=== PATIENT | male | born 1970 | race Caucasian/White ===

== ENCOUNTER 2019-12-24 00:12 | Day surgery (SDC) | payer OTHER, SELFPAY ==
[2019-12-23 10:28] VITALS: BMI 29.2
[2019-12-24] MEDS: LACTATED RINGERS 1,000 ML 150 ML IV CONT (09:30)
--- NOTE | 2019-12-24 09:32 | WPDANESEPPF ---
Anes - Initial Pre Proc Eval Procedure: Operation Date: 12/24/19 10:30 Proposed Procedures p Screening Colonoscopy - Leonidas Osullivan MD Date/Time: 12/24/19 09:32 Surgeon: Leonidas Osullivan MD Pre Op Diagnosis: Neoplasm Screening Patient Data Age: 49 Gender: M Height: 5 ft 11 in Weight: 95 kg Allergies Allergy/AdvReac Type Severity Reaction Status Date / Time Penicillins Allergy Unknown Rash Verified 12/23/19 10:23 Home Medications Medication Instructions Recorded Confirmed Type [id number] 1 tablet PO DAILY 12/23/19 12/23/19 History [Lukas Multivitamin For Men] Patient hx anesthesia problems: none Family hx anesthesia problems: none PMFSH Past Medical History Medical History (Updated 12/24/19 @ 09:32 by Sylvain Padilla MD) Hemochromatosis Family History Family History (Updated 07/05/18 @ 10:48 by DOCTOR UNKNOWN) Father Hypertension Family history of kidney disease Mother Hypertension Anes - Eval Final PreProcedure Day of Procedure 12/24/19 09:32 Patient weight: overweight Heart: regular rate and rhythm Lungs: clear to auscultation Airway: Mallampati scale class II Neurological: alert and oriented Last oral intake: >/= 8 hours ASA classification: II Emergent: no Anesthetic plan: proceed Anesthesia type and monitoring: general GIVS and standard monitoring Informed Consent: The patient's anesthetic plan and its attendant risks and benefits were discussed with the patient/family/POA. Questions were solicited and answers provided to the satisfaction of the patient/family/POA.
[2019-12-24 09:33] VITALS: BP 133/88; PULSE 85; RESP 20; TEMP 36.9; O2SAT 98; BMI 29.7
--- NOTE | 2019-12-24 10:01 | PM.HPGS ---
History of Present Illness History of Present Illness Consent: Risks, benefits, and alternatives have been discussed and questions answered. Patient agrees to proceed with procedure. Chief complaint: Neoplasm Screening Narrative: Huan Alvarez is a 49 year old male here for screening colonoscopy, never had one. Review of Systems Constitutional: Constitutional: Denies headache(s) and Denies weakness Eyes: Eyes: Denies blurry vision ENT: Reports Normal hearing present, Denies headache(s) and Denies neck pain Cardiovascular: Cardiovascular: Denies chest pain and Denies dyspnea Respiratory: Respiratory: Denies dyspnea Gastrointestinal: Gastrointestinal: Reports no additional gastrointestinal complaints Genitourinary: Genitourinary: Denies dysuria Musculoskeletal: Musculoskeletal: Denies neck pain Integumentary/Breasts: Skin/Breast: Denies dry skin Neurologic: Reports Normal hearing present, Denies headache(s) and Denies weakness Psychiatric: Psychiatric: Denies anxiety Endocrine: Endocrine: Denies change in body appearance Hematologic/Lymphatic: Hematologic/Lymphatic: Denies easy bleeding Allergic/Immunologic: Allergic/Immunologic: Denies urticaria PMFSH Past Medical History Medical History (Updated 12/24/19 @ 10:01 by Leonidas Osullivan MD) Colon cancer screening Hemochromatosis Family History Family History (Updated 07/05/18 @ 10:48 by DOCTOR UNKNOWN) Father Hypertension Family history of kidney disease Mother Hypertension Meds Home Medications and Allergies Home Medications Medication Instructions Recorded Confirmed Type [id number] 1 tablet PO DAILY 12/23/19 12/23/19 History [Lukas Multivitamin For Men] Allergies Allergy/AdvReac Type Severity Reaction Status Date / Time Penicillins Allergy Unknown Rash Verified 12/23/19 10:23 Vital Signs Vital Signs - 24 hr 12/24/19 09:33 Temperature 98.4 F Pulse Rate 85 Respiratory Rate 20 Blood Pressure 133/88 Pulse Oximetry 98 Exam Const: General: comfortable and no acute distress HENMT: General nose exam: Normal nares present Eyes: General: appearance normal, both eyes and all related structures Neck: Neck: no JVD Resp: Auscultation: clear to auscultation bilaterally Cardio: Rate: regular rate Rhythm: regular rhythm GI: Inspection: non-distended GI Palp: Yes Soft to palpation Skin: General skin exam: normal color Neuro: General: gait normal Speech: normal speech Extrem: General: normal to inspection Psych: Mental Status: mental status grossly normal Assessment and Plan Assessment and plan (1) Colon cancer screening: Code(s): Z12.11 - Encounter for screening for malignant neoplasm of colon Status: Acute Assessment and Plan: will proceed with colonoscopy
[2019-12-24 10:29] VITALS: BP 99/56; PULSE 92; RESP 20; O2SAT 100
[2019-12-24 10:39] VITALS: BP 103/66; PULSE 76; RESP 20; O2SAT 99
[2019-12-24 10:49] VITALS: BP 108/75; PULSE 72; RESP 20; O2SAT 100
== END 2019-12-24 10:58 | disposition home or self-care (01) ==
PROVIDERS: PCP Internal Medicine; Visit Provider Internal Medicine Gastroenterology
PROC: 0DJD8ZZ Inspection of Lower Intestinal Tract, Via Natural or Artificial Opening Endoscopic (ICD-10-PCS; CPT 45378; principal; 2019-12-24 10:30)
DX: Z12.11 Encounter for screening for malignant neoplasm of colon (principal); D12.0 Benign neoplasm of cecum; D12.8 Benign neoplasm of rectum; K63.5 Polyp of colon; E83.119 Hemochromatosis, unspecified
CPT/HCPCS: 45385; 45384; 88305; J2704; J7120

== ENCOUNTER → 2020-12-26 05:47 | Outpatient (CLI) | payer OTHER, SELFPAY ==
[2020-12-26 19:10] LABS: SARS-CoV-2 RNA PCR Negative
== END ==
PROVIDERS: PCP Internal Medicine; Visit Provider Internal Medicine Gastroenterology
DX: Z01.812 Encounter for preprocedural laboratory examination (principal); Z20.822 Contact with and (suspected) exposure to COVID-19
CPT/HCPCS: C9803; U0003; U0005

== ENCOUNTER 2020-12-29 00:34 | Day surgery (SDC) | payer OTHER, SELFPAY ==
[2020-12-07 10:12] VITALS: BMI 28.5
[2020-12-29 06:17] VITALS: BP 132/85; PULSE 96; RESP 18; TEMP 36.8; O2SAT 99
[2020-12-29] MEDS: LACTATED RINGERS 1,000 ML 150 ML IV CONT (06:22)
--- NOTE | 2020-12-29 07:07 | WPDANESEPPF ---
Anes - Initial Pre Proc Eval Procedure: Operation Date: 12/29/20 07:30 Proposed Procedures p Screening Colonoscopy - Leonidas Osullivan MD Date/Time: 12/29/20 07:07 Surgeon: Leonidas Osullivan MD Pre Op Diagnosis: Neoplasm Screening Patient Data Age: 50 Gender: M Height: 5 ft 11 in Weight: 97.2 kg Last Vital Signs Temp 36.8 C 12/29/20 06:17 Pulse 96 12/29/20 06:17 Resp 18 12/29/20 06:17 BP 132/85 12/29/20 06:17 Pulse Ox 99 12/29/20 06:17 Allergies Allergy/AdvReac Type Severity Reaction Status Date / Time Penicillins Allergy Intermediate Rash Verified 12/29/20 06:13 Home Medications Medication Instructions Recorded Confirmed Type ascorbate calcium (vitamin C) 500 mg PO DAILY 12/07/20 12/07/20 History cholecalciferol (vitamin D3) 5,000 unit PO DAILY 12/07/20 12/07/20 History [Vitamin D3] mmgwttou-csw-iwvia-vit K-lycop 1 tablet PO DAILY 12/07/20 12/07/20 History [One-A-Day Men's 50 Plus] zinc 50 mg PO DAILY 12/07/20 12/07/20 History Patient hx anesthesia problems: none Family hx anesthesia problems: none PMFSH Past Medical History Medical History Colon cancer screening Hemochromatosis Family History Family History Father Hypertension Family history of kidney disease Mother Hypertension Social History Social History Smoking status: Never smoker Alcohol intake: current Drinks per week: 8 Alcohol use details: BEER Substance use: never Substance use type: does not use Living arrangements: with family Spiritual care concerns: No Anes - Eval Final PreProcedure Day of Procedure 12/29/20 07:07 Patient weight: overweight Heart: regular rate and rhythm Lungs: clear to auscultation Airway: Mallampati scale class II Neurological: alert and oriented Last oral intake: >/= 8 hours ASA classification: II Emergent: no Anesthetic plan: proceed Anesthesia type and monitoring: general GIVS and standard monitoring Informed Consent: The patient's anesthetic plan and its attendant risks and benefits were discussed with the patient/family/POA. Questions were solicited and answers provided to the satisfaction of the patient/family/POA.
--- NOTE | 2020-12-29 07:25 | PM.HPGS ---
History of Present Illness History of Present Illness Consent: Risks, benefits, and alternatives have been discussed and questions answered. Patient agrees to proceed with procedure. Chief complaint: Neoplasm Screening Narrative: Huan Alvarez is a 50 year old male with large polyps removed 1 year ago. Review of Systems Constitutional: Constitutional: Denies headache(s) and Denies weakness Eyes: Eyes: Denies blurry vision ENT: Reports Normal hearing present, Denies headache(s) and Denies neck pain Cardiovascular: Cardiovascular: Denies chest pain and Denies dyspnea Respiratory: Respiratory: Denies dyspnea Gastrointestinal: Gastrointestinal: Reports no additional gastrointestinal complaints Genitourinary: Genitourinary: Denies dysuria Musculoskeletal: Musculoskeletal: Denies neck pain Integumentary/Breasts: Skin/Breast: Denies dry skin Neurologic: Reports Normal hearing present, Denies headache(s) and Denies weakness Psychiatric: Psychiatric: Denies anxiety Endocrine: Endocrine: Denies change in body appearance Hematologic/Lymphatic: Hematologic/Lymphatic: Denies easy bleeding Allergic/Immunologic: Allergic/Immunologic: Denies urticaria PMFSH Past Medical History Medical History Colon cancer screening Hemochromatosis Family History Family History Father Hypertension Family history of kidney disease Mother Hypertension Social History Social History Smoking status: Never smoker Alcohol intake: current Drinks per week: 8 Alcohol use details: BEER Substance use: never Substance use type: does not use Living arrangements: with family Spiritual care concerns: No Meds Home Medications and Allergies Home Medications Medication Instructions Recorded Confirmed Type ascorbate calcium (vitamin C) 500 mg PO DAILY 12/07/20 12/07/20 History cholecalciferol (vitamin D3) 5,000 unit PO DAILY 12/07/20 12/07/20 History [Vitamin D3] hzgnqfdn-vgi-cvkop-vit K-lycop 1 tablet PO DAILY 12/07/20 12/07/20 History [One-A-Day Men's 50 Plus] zinc 50 mg PO DAILY 12/07/20 12/07/20 History Allergies Allergy/AdvReac Type Severity Reaction Status Date / Time Penicillins Allergy Intermediate Rash Verified 12/29/20 06:13 Vital Signs Vital Signs - 24 hr 12/29/20 06:17 Temperature 98.3 F Pulse Rate 96 Respiratory Rate 18 Blood Pressure 132/85 Pulse Oximetry 99 Exam Const: General: comfortable and no acute distress HENMT: General nose exam: Normal nares present Eyes: General: appearance normal, both eyes and all related structures Neck: Neck: no JVD Resp: Auscultation: clear to auscultation bilaterally Cardio: Rate: regular rate Rhythm: regular rhythm GI: Inspection: non-distended GI Palp: Yes Soft to palpation Skin: General skin exam: normal color Neuro: General: gait normal Speech: normal speech Extrem: General: normal to inspection Psych: Mental Status: mental status grossly normal Assessment and Plan Assessment and plan (1) Adenomatous colon polyp: Code(s): D12.6 - Benign neoplasm of colon, unspecified Status: Acute Assessment and Plan: proceed with colonoscopy
[2020-12-29 07:46] VITALS: BP 116/60; PULSE 92; RESP 23; O2SAT 100
[2020-12-29 07:56] VITALS: BP 124/84; PULSE 75; RESP 15; O2SAT 100
[2020-12-29 08:06] VITALS: BP 128/82; PULSE 74; RESP 25; O2SAT 100
== END 2020-12-29 08:14 | disposition home or self-care (01) ==
PROVIDERS: PCP Internal Medicine; Visit Provider Internal Medicine Gastroenterology
PROC: 0DJD8ZZ Inspection of Lower Intestinal Tract, Via Natural or Artificial Opening Endoscopic (ICD-10-PCS; CPT 45378; principal; 2020-12-29 07:30)
DX: Z12.11 Encounter for screening for malignant neoplasm of colon (principal); Z86.010 Personal history of colon polyps
CPT/HCPCS: 45378; C9803; J2704; J7120; U0003; U0005